=== PATIENT | female | born 1990 | race African-American/Black ===

== ENCOUNTER 2022-10-14 00:34 | Emergency (ER) | payer MEDICAID ==
[~2022-10-14] VITALS: Ht 170.2 cm; Wt 77.0 kg
[2022-10-14 00:37] VITALS: BP 128/73
[2022-10-14] MEDS ORDERED: KETOROLAC 30MG/ML VIAL IV STA (00:45)
[2022-10-14] MEDS ORDERED: SODIUM CHLORIDE 0.9% 1,000 ML IV ONE (00:45)
[2022-10-14] MEDS ORDERED: MAGNESIUM/ALUMINUM HYDROXIDE/SIMETHICONE 30ML UDC PO STA (00:45)
[2022-10-14] MEDS ORDERED: ONDANSETRON HCL 4MG/2ML INJ IV STA (00:45)
[2022-10-14 01:37] LABS: BASOPHILS % 0.2 % (0.0-2.0); CLARITY URINE CLOUDY (CLEAR); COLOR URINE YELLOW (YELLOW); EOSINOPHILS % 0.5 % (0.0-5.0); HEMATOCRIT. 40.4 % (36.0-48.0); HEMOGLOBIN. 13.6 g/dL (12.0-16.0); KETONES URINE 3+ (NEGATIVE); LEUKOCYTE ESTERASE URINE TRACE (NEGATIVE); LYMPHOCYTES % 15.4 % (20.0-50.0); MEAN CORPUSCULAR HEMOGLOBIN 31.2 pg (28.0-32.0); MEAN CORPUSCULAR VOLUME 92.5 fL (81.0-99.0); MEAN PLATELET VOLUME 8.1 fl (7.4-10.4); MONOCYTES % 6.5 % (2.0-8.0); NEUTROPHILS % 77.4 % (40.0-76.0); NITRITE URINE NEGATIVE (NEGATIVE); OCCULT BLOOD URINE NEGATIVE (NEGATIVE); PH URINE 5.5 (4.5-8.0); PLATELET 217 x1000/uL (130-400); PROTEIN URINE TRACE (NEGATIVE); RED BLOOD CELL COUNT 4.37 mill/uL (4.2-5.4); RED CELL DISTRIBUTION WIDTH 13.6 % (11.6-14.6); SPECIFIC GRAVITY URINE 1.034 (1.005-1.030)
[2022-10-14 01:44] LABS: CHLORIDE 112 mEq/L (98-107)
[2022-10-14 01:51] LABS: ETHANOL BLOOD < 10 mg/dL; HCG SCREEN NEGATIVE
[2022-10-14] MEDS ORDERED: ONDA4TAB11 PO (04:08)
== END 2022-10-14 04:50 | disposition home or self-care (01) ==
LOC: ER 00:34
DX: R11.2 Nausea with vomiting, unspecified (principal); Z90.49 Acquired absence of other specified parts of digestive tract
CPT/HCPCS: 36415; 80053; 80320; 81003; 81025; 83690; 84703; 85025; 93005; 96361; 96374; 96375; 99284; J1885; J2405; J7030; Z7610; G0480